=== PATIENT | female | born 1935 ===

== ENCOUNTER 2017-10-12 14:42 | Emergency (ER) | payer MEDICARE ==
[2017-10-12 14:49] VITALS: BP 175/87; PULSE 97; RESP 16; TEMP 97.7; O2SAT 99
--- NOTE | 2017-10-12 15:24 | ED PDOC ---
HPI: General Adult Time Seen by Provider: 10/12/17 15:16 Chief Complaint (Nursing): Female Genitourinary History Per: Patient Additional Complaint(s): Pt. states for the past 10 days she's felt as if there is something in her vagina. States she usually uses a pad due to her urinary incontinence. Denies pain, vaginal bleeding, dysuria, hematuria, fever, abdominal pain, N/V/D. Past Medical History Reviewed: Historical Data, Nursing Documentation, Vital Signs Vital Signs: Last Vital Signs Temp 97.7 F 10/12/17 14:46 Pulse 97 H 10/12/17 14:46 Resp 16 10/12/17 14:46 BP 175/87 H 10/12/17 14:46 Pulse Ox 99 10/12/17 15:29 - Medical History PMH: Diabetes - Family History Family History: States: No Known Family Hx - Home Medications Home Medications: Ambulatory Orders Medication Instructions Recorded Fluconazole [Diflucan] 150 mg PO ONCE #1 tab 10/12/17 Nitrofurantoin Macrocrystals 100 mg PO BID #14 cap 10/12/17 [Macrobid] - Allergies Allergies/Adverse Reactions: Allergies Allergy/AdvReac Type Severity Reaction Status Date / Time No Known Allergies Allergy Verified 10/12/17 14:46 Review of Systems ROS Statement: Except As Marked, All Systems Reviewed And Found Negative Physical Exam - Physical Exam Appears: Positive for: Well, Non-toxic, No Acute Distress Skin: Positive for: Normal Color, Warm. Negative for: Rash Eye Exam: Positive for: Normal appearance Cardiovascular/Chest: Positive for: Regular Rate, Rhythm Respiratory: Positive for: Normal Breath Sounds Gastrointestinal/Abdominal: Positive for: Normal Exam, Soft. Negative for: Tenderness Pelvic Exam: Positive for: No Cerv. 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 Negative for: No Masses, Active Bleeding, Blood, Cervicitis, Discharge, Lesions Back: Positive for: Normal Inspection. Negative for: L CVA Tenderness, R CVA Tenderness Extremity: Positive for: Normal ROM Neurologic/Psych: Positive for: Alert, Oriented. Negative for: Aphasia, Facial Droop - Laboratory Results Urine dip results: Positive for: Leukocyte Esterase (small), Blood (moderate). Negative for: Nitrate, Ketones, Glucose, Bilirubin, Protein - ECG O2 Sat by Pulse Oximetry: 99 Disposition - Clinical Impression Clinical Impression: UTI (urinary tract infection), Vaginitis - Patient ED Disposition Is Patient to be Admitted: No - Disposition Referrals: [facility] [Outside] [facility] [Outside] Disposition: Routine/Home Disposition Time: 16:05 Condition: STABLE Prescriptions: Fluconazole [Diflucan] 150 mg PO ONCE #1 tab Nitrofurantoin Macrocrystals [Macrobid] 100 mg PO BID #14 cap Instructions: Urinary Tract Infection in Women (ED), Vaginitis (ED) Forms: [employer] (Vietnamese)
== END 2017-10-12 16:16 | disposition home or self-care (01) ==
LOC: H.ER 14:42
DX: N39.0 Urinary tract infection, site not specified (principal); N76.0 Acute vaginitis; E11.9 Type 2 diabetes mellitus without complications